=== PATIENT | male | born 1950 | race Caucasian/White ===

== ENCOUNTER 2016-10-13 08:18 | Day surgery (SDC) | payer MEDICARE ==
[~2016-10-13] VITALS: Ht 177.8 cm; Wt 127.4 kg
[~2016-10-13 08:18] MED LIST: ACET500C8 PO; ALLO300T2 PO; AMLO5TAB2 PO; ATEN-39 PO; LEVO50TA11 PO; LIDOCAINE 1% (10mg/ml) 2ml SDV INJ ONE; LISI1TAB13 PO; LR 1,000 ML IV SCH; MELO-267 PO; SIMV40TA5 PO
--- OUTSIDE RECORDS SUMMARY | 2016-10-13 08:22 | XMS REPORT | Referral Summary ---
Author Author [facility] Organization [facility] Address Unknown Phone Unavailable Care Team Providers Care Supervisor Cold Rolling Name Role Phone Ivanna Verdugo Primary Care Physician [phone] Encounter Date(s): 02/17/15 - 02/17/15 [facility] [address] [place] [address]- Discharge Diagnosis: Degenerative joint disease involving multiple joints Discharge Diagnosis: Gout Discharge Diagnosis: Gastro-esophageal reflux Discharge Diagnosis: Benign essential hypertension Discharge Diagnosis: Hypothyroidism Discharge Diagnosis: Hyperlipidemia Discharge Disposition: 01-Home or Self Care Attending Physician: Tian Verdugo MD Admitting Physician: Tian Verdugo MD Vital Signs Most recent to 1 oldest [Reference Range]: Temperature Tympanic 36.2 degC [36.6-38.1 degC] *LOW* (02/17/15 9:26 AM) Peripheral Pulse 64 bpm Rate [60-100 bpm] (02/17/15 9:26 AM) Respiratory Rate 16 br/min [14-20 br/min] (02/17/15 9:26 AM) Blood Pressure 138/100 mmHg [90-140/60-90 mmHg] (02/17/15 9:26 AM) Problem List Condition Effective Dates Status Health Status Informant Other dyspnea and Active respiratory abnormality(Confirme d) Allergic Active rhinitis(Confirmed) Anginal Active pain(Confirmed) Anxiety Active disorder(Confirmed) Benign essential Active hypertension (disorder)(Confirmed ) Constipation(Confirm Active ed) Generalized Active osteoarthritis (disorder)(Confirmed ) Dizziness and Active giddiness(Confirmed) Eustachian tube Active dysfunction(Confirme d) Gastro-esophageal Active reflux(Confirmed) Gout Active (disorder)(Confirmed ) History of Active varicella(Confirmed) Headache(Confirmed) Active Hearing Active loss(Confirmed) Hypothyroidism Active (disorder)(Confirmed ) Impacted Active cerumen(Confirmed) Head Active trauma(Confirmed) Kidney Active disease(Confirmed) Kidney Active stones(Confirmed) Hyperlipidemia(Confi Active rmed) Osteoarthritis(Confi Active rmed) Otalgia, Active unspecified(Confirme d) Overweight(Confirmed Active ) Sinus Active infection(Confirmed) Sleep Active apnea(Confirmed) Tension Active headache(Confirmed) TIA (transient Active ischemic attack)(Confirmed) Allergies, Adverse Reactions, Alerts Substance Reaction Severity Status aspirin Hives Active morphine Unknown Active penicillin Active Medications allopurinol 300 mg oral tablet See Instructions, TAKE ONE TABLET BY MOUTH ONCE DAILY, # 30 tabs, 2 Refill(s), Pharmacy: [facility], TAKE ONE TABLET BY MOUTH ONCE DAILY Start Date: 08/20/15 Status: Ordered amLODIPine 5 mg oral tablet 5 mg 1 tabs, Oral, Daily, # 30 tabs, 6 Refill(s), Pharmacy: [facility], 1 tabs Oral Daily Start Date: 04/15/15 Status: Ordered atenolol 50 mg oral tablet 50 mg 1 tabs, Oral, BID, # 60 tabs, 6 Refill(s), Pharmacy: [facility], 1 tabs Oral BID Start Date: 02/17/15 Status: Ordered Benadryl Allergy mg, Oral, Daily, as needed for allergy symptoms, 0 Refill(s) Start Date: 02/17/15 Status: Ordered LamISIL AT 1% topical cream 1 phoenix, Topical, TID, 0 Refill(s) Start Date: 05/06/14 Status: Ordered levothyroxine 50 mcg (0.05 mg) oral tablet See Instructions, TAKE ONE TABLET BY MOUTH ONCE DAILY, # 30 tabs, 8 Refill(s), eRx: [facility], TAKE ONE TABLET BY MOUTH ONCE DAILY Start Date: 05/07/15 Status: Ordered lisinopril-hydrochlorothiazide 20 mg-25 mg oral tablet See Instructions, TAKE ONE TABLET BY MOUTH ONCE DAILY, # 30 tabs, 4 Refill(s), eRx: [facility], TAKE ONE TABLET BY MOUTH ONCE DAILY Start Date: 02/18/15 Status: Ordered loratadine 10 mg oral tablet 10 mg 1 tabs, Oral, Daily, as needed for allergy symptoms, 0 Refill(s) Start Date: 02/17/15 Status: Ordered meloxicam 15 mg oral tablet 15 mg 1 tabs, Oral, Daily, # 30 tabs, 6 Refill(s), Pharmacy: [facility], 1 tabs Oral Daily Start Date: 02/17/15 Status: Ordered PriLOSEC OTC 20 mg oral delayed release tablet 20 mg 1 tabs, Oral, Daily, GERD/Heartburn, # 30 tabs, 0 Refill(s), Pharmacy: [facility], 1 tabs Oral Daily,PRN:GERD/Heartburn Start Date: 02/17/15 Status: Ordered simvastatin 40 mg oral tablet 40 mg 1 tabs, Oral, Bedtime (once a day), # 30 tabs, 6 Refill(s), Pharmacy: [facility], 1 tabs Oral Bedtime (once a day) Start Date: 02/17/15 Status: Ordered triamcinolone 0.1% topical cream 1 phoenix, Topical, BID, # 60 g, 0 Refill(s), Pharmacy: [facility] Start Date: 03/12/15 Status: Ordered Vitamin B Complex oral tablet 1 tabs, Oral, Daily, # 100 tabs, 0 Refill(s) Start Date: 02/17/15 Status: Ordered vitamin E 400 intl units oral capsule 400 Intl_Units 1 caps, Oral, Daily, # 100 caps, 0 Refill(s) Start Date: 02/17/15 Status: Ordered Zinc mg, Oral, Daily, 0 Refill(s) Start Date: 07/27/15 Status: Ordered Results Hematology Most recent to 1 oldest [Reference Range]: WBC [4.8-10.8 6.8 10*3/uL 10*3/uL] (02/17/15 10:18 AM) RBC [4.60-6.20] 4.90 (02/17/15 10:18 AM) Hgb [14.0-18.0 14.2 gm/dL gm/dL] (02/17/15 10:18 AM) Hct [42.0-52.0 %] 42.0 % (02/17/15 10:18 AM) MCV [82.0-99.0 fL] 85.7 fL (02/17/15 10:18 AM) MCH [27.0-32.0 pg] 29.0 pg (02/17/15:18 AM) MCHC [32.0-36.0 33.8 gm/dL gm/dL] (02/17/15:18 AM) RDW [11.5-14.5 %] 13.9 % (02/17/15:18 AM) Platelet [150-400 149 10*3/uL 10*3/uL] *LOW* (02/17/15:18 AM) Neutrophils [51-75 55 % %] (02/17/15:18 AM) Lymphocytes [20-46 30 % %] (02/17/15:18 AM) Monocytes [4-11 %] 11 % (02/17/15: AM) Eosinophils [0-4 %] 3 % (02/17/15 AM) Basophils [0-2 %] 1 % (02/17/15: AM) Neutro Absolute 3.74 10*3 [1.90-7.00 10*3] (02/17/15:18 AM) Lymph Absolute 2.04 10*3 [0.80-3.30 10*3] (02/17/15:18 AM) Kershaw Absolute 0.75 10*3 [0.30-1.00 10*3] (02/17/15:18 AM) Eos Absolute 0.20 10*3 [0.00-0.50 10*3] (02/17/15:18 AM) Baso Absolute 0.07 10*3 [0.00-0.20 10*3] (02/17/15:18 AM) Differential Manual *ABN* (02/17/15: AM) Chemistry Most recent to 1 oldest [Reference Range]: Sodium Lvl [135-144 144 mEq/L mEq/L] (02/17/15:18 AM) Potassium Lvl 3.5 mEq/L [3.5-5.2 mEq/L] (02/17/15:18 AM) Chloride [99-111 106 mEq/L mEq/L] (02/17/15:18 AM) CO2 [23-31 mEq/L] 27 mEq/L (02/17/15:18 AM) AGAP [3-20] 11 (9/22/15 10:18 AM) BUN [8-26 mg/dL] 14 mg/dL (02/17/15 10:18 AM) Glucose Lvl [70-99 115 mg/dL mg/dL] *HI* (02/17/15:18 AM) Creatinine Lvl 0.73 mg/dL [0.72-1.25 mg/dL] (02/17/15:18 AM) eGFR [>60 mL/min] >60 mL/min 1 (02/17/15: AM) Calcium Lvl 9.1 mg/dL [8.9-10.5 mg/dL] (02/17/15:18 AM) Albumin Lvl [3.4-4.8 4.0 gm/dL gm/dL] (02/17/15 AM) Total Protein 6.3 gm/dL [6.2-8.1 gm/dL] (02/17/15: AM) Globulin [1.8-4.0 2.3 gm/dL gm/dL] (02/17/15:18 AM) ALT [0-55 U/L] 45 U/L (02/17/15: AM) AST [5-34 U/L] 47 U/L *HI* (02/17/15: AM) Alk Phos [40-150 69 U/L U/L] (02/17/15:18 AM) Bili Total [0.2-1.2 0.8 mg/dL mg/dL] (02/17/15:18 AM) Uric Acid [3.5-7.2 5.6 mg/dL mg/dL] (02/17/15:18 AM) Chol [0-199 mg/dL] 132 mg/dL (02/17/15:18 AM) Trig [0-149 mg/dL] 123 mg/dL (02/17/15:18 AM) HDL [40-84 mg/dL] 33 mg/dL *LOW* (02/17/15:18 AM) LDL [0-130 mg/dL] 74 mg/dL (02/17/15:18 AM) VLDL Cholesterol 25 mg/dL [0-28 mg/dL] (9/22/15 10:18 AM) Cardiac Risk 4.0 [0.0-5.7] (02/17/15 10:18 AM) TSH with Reflex Free 2.14 T4 [0.35-4.94] (02/17/15 10:18 AM) 1Result Comment: Multiply eGFR results by 1.21 for race. Immunizations Vaccine Date Refusal Reason tetanus toxoid 08/01/13 Procedures Procedure Date Related Diagnosis Body Site Removal of skin tags, multiple fibrocutaneous 02/17/15 tags, any area; up to and including 15 lesions.. Repair of Nasal Septum 05/24/07 Sinus Surgery 05/24/07 Adenoidectomy 1970 Appendectomy Circumcision Tonsillectomy Social History Social History Type Response Smoking Status Former smoker Assessment and Plan Extracted from: Title: Ambulatory Patient Education Author: Tian Verdugo MD Date: Cardiovascular Dyslipidemia Dyslipidemia is an imbalance of the lipids in your blood. Lipids are waxy, fat- like proteins that your body needs in small amounts. Dyslipidemia often involves the lipids cholesterol or triglycerides. Common forms of dyslipidemia are: High levels of bad cholesterol (LDL cholesterol). LDL cholesterol is the type of cholesterol that causes heart disease. Low levels of good cholesterol (HDL cholesterol). HDL cholesterol is the type of cholesterol that helps protect against heart disease. High levels of triglycerides. Triglycerides are a fatty substance in the blood linked to a buildup of plaque on your arteries. RISK FACTORS Increased age. Having a family history of high cholesterol. Certain medicines, including control pills, diuretics, beta-blockers , and some medicines for depression. Smoking. Eating a high-fat diet. Being overweight. Medical conditions such as diabetes, polycystic ovary syndrome, , kidney disease, and hypothyroidism. Lack of regular exercise. SIGNS AND SYMPTOMS There are no signs or symptoms with dyslipidemia. DIAGNOSIS A simple blood test called a fasting blood test can be done to determine your level of: Total cholesterol. This is the combined number of LDL cholesterol and HDL cholesterol. A healthy number is lower than 200. LDL cholesterol. The goal number for LDL cholesterol is different for each person depending on risk factors. Ask your health care provider what your LDL cholesterol number should be. HDL cholesterol. A healthy level of HDL cholesterol is 60 or higher. A number lower than 40 for men or 50 for women is a danger sign. Triglycerides. A healthy triglyceride number is less than 150. TREATMENT Dyslipidemia is a treatable condition. Your health care provider will advise you on what type of treatment is best based on your age, your test results, and current guidelines. Treatment may include: Dietary changes. A dietitian can help you create a meal plan. You may need to: Eat more foods that contain omega-3s, such as salmon and other fish. Replace saturated fats and trans fats in your diet with healthy fats such as nuts, seeds, avocados, olive oil, and canola oil. Regular exercise. This can help lower your LDL cholesterol, raise your HDL cholesterol, and help with weight management. Check with your health care provider before beginning an exercise program. Most people should participate in 30 minutes of brisk exercise 5 days a week. Quitting smoking. Medicines to lower LDL cholesterol and triglycerides. Your health care provider will monitor your lipid levels with regular blood tests. HOME CARE INSTRUCTIONS Eat a healthy diet. Follow any diet instructions if they were given to you by your health care provider. Maintain a healthy weight. Exercise regularly based on the recommendations of your health care provider. Do not use any tobacco products, including cigarettes, chewing tobacco, or electronic cigarettes. Take medicines only as directed by your health care provider. Keep all follow-up visits as directed by your health care provider. SEEK MEDICAL CARE IF: You are having possible side effects from your medicines. Document Released: 05/20/2014 Document Revised: 09/29/2014 Document Reviewed: [facility] Patient Information 2015 [employer]. This information is not intended to replace advice given to you by your health care provider. Make sure you discuss any questions you have with your health care provider. No follow up information was provided. Extracted from: Title: Office Visit Note Author: Tian Verdugo MD Date: 02/17/15 Assessment/Plan Benign essential hypertension Blood pressure is adequately controlled. Medications and treatments reviewed refills provided. Follow-up in 6 months for recheck. Testing laboratory studies ordered for today. Ordered: CBC w/ Differential Comprehensive Metabolic Panel Lipid Panel Office Visit Level 4 Est 84365 Cutaneous skin tags These 3 skin tags were treated with cryotherapy using liquid nitrogen. Each skin tag was frozen for 1 minute if they recur or persist he'll let us know. Ordered: Removal Of Skin Tags, Up To and Including 51048 Degenerative joint disease involving multiple joints Chronic stable no change in current treatment recommended. Ordered: Office Visit Level 4 Est 60103 Gastro-esophageal reflux Chronic and stable no change in current treatment recommended. Ordered: Office Visit Level 4 Est 85797 Gout Continue allopurinol. Check uric acid level today. Ordered: Office Visit Level 4 Est 40494 Uric Acid Hyperlipidemia Laboratory studies ordered. No change in current treatment for the time being. Hypothyroidism TSH ordered appropriate adjustments as needed. Ordered: Office Visit Level 4 Est 72788 TSH with Reflex Free T4
--- OUTSIDE RECORDS SUMMARY | 2016-10-13 08:22 | XMS REPORT | Referral Summary ---
Author Author [facility] Organization [facility] Address Unknown Phone Unavailable Care Team Providers Care Off Premise Service Representative Name Role Phone Ivanna Verdugo Primary Care Physician [phone] Encounter Date(s): 12/23/15 - 12/23/15 [facility] [address] [place] [address]- Discharge Diagnosis: Gastro-esophageal reflux Discharge Diagnosis: Benign essential hypertension Discharge Diagnosis: Hyperlipidemia Discharge Diagnosis: Hypothyroidism (disorder) Discharge Diagnosis: Generalized osteoarthritis (disorder) Discharge Disposition: 01-Home or Self Care Attending Physician: Tian Verdugo MD Admitting Physician: Tian Verdugo MD Vital Signs Most recent to 1 oldest [Reference Range]: Temperature Tympanic 37.0 degC [36.6-38.1 degC] (12/23/15 1:42 PM) Peripheral Pulse 68 bpm Rate [60-100 bpm] (12/23/15 1:42 PM) Blood Pressure 146/86 mmHg [90-140/60-90 mmHg] *HI* (12/23/15 1:42 PM) Problem List Condition Effective Dates Status Health [...] BY MOUTH ONCE DAILY, # 30 tabs, eRx: [facility], TAKE ONE TABLET BY MOUTH ONCE DAILY Start Date: 12/14/15 Status: Ordered amLODIPine 5 mg oral tablet 5 mg 1 tabs, Oral, Daily, # 30 tabs, 6 Refill(s), Pharmacy: [facility], 1 tabs Oral Daily Start Date: 04/15/15 Status: Ordered atenolol 50 mg oral tablet 50 mg 1 tabs, Oral, BID, # 60 tabs, 6 Refill(s), Pharmacy: [facility], 1 tabs Oral BID Start Date: 10/12/15 Status: Ordered Benadryl Allergy mg, Oral, Daily, as needed for allergy symptoms, 0 Refill(s) Start Date: 02/17/15 Status: Ordered Glucosamine Chondroitin Advanced See Instructions, 1 tablet in the morning every other day, 1 every bedtime, 0 Refill(s) Start Date: 12/23/15 Status: Ordered LamISIL AT 1% topical cream 1 phoenix, Topical, TID, 0 Refill(s) Start Date: 05/06/14 Status: Ordered levothyroxine 50 mcg (0.05 mg) oral tablet See Instructions, TAKE ONE TABLET BY MOUTH ONCE DAILY, # 30 tabs, 8 Refill(s), eRx: [facility], TAKE ONE TABLET BY MOUTH ONCE DAILY Start Date: 05/07/15 Status: Ordered lisinopril-hydrochlorothiazide 20 mg-25 mg oral tablet See Instructions, TAKE ONE TABLET BY MOUTH ONCE DAILY, # 30 tabs, 4 Refill(s), Pharmacy: [facility] Start Date: 09/09/15 Status: Ordered loratadine 10 mg oral tablet 10 mg 1 tabs, Oral, Daily, as needed for allergy symptoms, 0 Refill(s) Start Date: 02/17/15 Status: Ordered meloxicam 15 mg oral tablet 15 mg 1 tabs, Oral, Daily, # 30 tabs, 6 Refill(s), Pharmacy: [facility], 1 tabs Oral Daily Start Date: 11/24/15 Status: Ordered PriLOSEC OTC 20 mg oral delayed release tablet 20 mg 1 tabs, Oral, Daily, GERD/Heartburn, # 30 tabs, 0 Refill(s), Pharmacy: [facility], 1 tabs Oral Daily,PRN:GERD/Heartburn Start Date: 02/17/15 Status: Ordered simvastatin 40 mg oral tablet 40 mg 1 tabs, Oral, Bedtime (once a day), # 30 tabs, 6 Refill(s), Pharmacy: [facility], 1 tabs Oral Bedtime (once a day) Start Date: 10/12/15 Status: Ordered triamcinolone 0.1% topical cream 1 phoenix, Topical, BID, # 60 g, 0 Refill(s), Pharmacy: [facility] Start Date: 03/12/15 Status: Ordered Vitamin B Complex oral tablet 1 tabs, Oral, Daily, # 100 tabs, 0 Refill(s) Start Date: 02/17/15 Status: Ordered vitamin E 400 intl units oral capsule 400 Intl_Units 1 caps, Oral, Daily, # 100 caps, 0 Refill(s) Start Date: 02/17/15 Status: Ordered Zinc mg, Oral, Daily, 0 Refill(s) Start Date: 07/27/15 Status: Ordered Results No data available for this section Immunizations Vaccine Date Refusal Reason tetanus toxoid 08/01/13 Procedures Procedure Date Related Diagnosis Body Site Repair of Nasal Septum 05/24/07 Sinus Surgery 05/24/07 Adenoidectomy 1970 Appendectomy Circumcision Tonsillectomy Social History Social History Type Response Smoking Status Former smoker; Type: Cigars1 1quit more than 30 years ago Assessment and Plan Extracted from: Title: Office Visit Note Author: Tian Verdugo MD Date: 12/23/15 Assessment/Plan 1.Benign essential hypertension Blood pressure is mildly elevated here but normal at home. No change in current treatment is recommended. Recent laboratory studies reviewed and provided. Report card reviewed and provided. Follow-up in 6 months. Encouraged weight loss. Ordered: Office Visit Level 4 Est 02463 2.Gastro-esophageal reflux Chronic stable no change in current treatment. Ordered: Office Visit Level 4 Est 83497 3.Generalized osteoarthritis (disorder) Chronic and stable no change in current treatment. Ordered: Office Visit Level 4 Est 59817 4.Hyperlipidemia Previous laboratory studies reviewedoverall stable. Continue current treatment plan without change. Recheck in 6 months with fasting lab. Ordered: Office Visit Level 4 Est 26729 5.Hypothyroidism (disorder) Most recent TSH is been normal no change in current treatment plan. Follow-up in 6 months with TSH then. Ordered: Office Visit Level 4 Est 39299
--- OUTSIDE RECORDS SUMMARY | 2016-10-13 08:23 | XMS REPORT | Referral Summary ---
Author Author [facility] Organization [facility] Address Unknown Phone Unavailable Care Team Providers Care Woods Laborer Name Role Phone Ivanna Verdugo Primary Care Physician [phone] Encounter Date(s): 04/27/16 - 04/27/16 [facility] [address] [place] [address]- Discharge Diagnosis: Bilateral acute suppurative otitis media Discharge Diagnosis: Cerumen impaction Discharge Diagnosis: Acute pharyngitis Discharge Diagnosis: Benign essential hypertension Discharge Disposition: 01-Home or Self Care Attending Physician: Chani Monet APRN Admitting Physician: Chani Monet APRN Vital Signs Most recent to 1 oldest [Reference Range]: Temperature Tympanic 36.5 degC [36.6-38.1 degC] *LOW* (04/27/16 9:23 AM) Peripheral Pulse 68 bpm Rate [60-100 bpm] (04/27/16 9:23 AM) Respiratory Rate 16 br/min [14-20 br/min] (04/27/16 9:23 AM) Blood Pressure 148/90 mmHg [90-140/60-90 mmHg] *HI* (04/27/16 9:23 AM) Problem List Condition Effective Dates Status [...] BY MOUTH ONCE DAILY, # 30 tabs, 0 Refill(s), Pharmacy: [facility], TAKE ONE TABLET BY MOUTH ONCE DAILY Start Date: 03/10/16 Status: Ordered amLODIPine 5 mg oral tablet See Instructions, TAKE ONE TABLET BY MOUTH ONCE DAILY, # 30 tabs, 4 Refill(s), eRx: [facility], TAKE ONE TABLET BY MOUTH ONCE DAILY Start Date: 01/04/16 Status: Ordered atenolol 50 mg oral tablet 50 mg 1 tabs, Oral, BID, # 60 tabs, 6 Refill(s), Pharmacy: [facility], 1 tabs Oral BID Start Date: 10/12/15 Status: Ordered Benadryl Allergy mg, Oral, Daily, as needed for allergy symptoms, 0 Refill(s) Start Date: 02/17/15 Status: Ordered Glucosamine Chondroitin Advanced See Instructions, 1 tablet in the morning every other day, 1 every bedtime, 0 Refill(s) Start Date: 12/23/15 Status: Ordered levothyroxine 50 mcg (0.05 mg) oral tablet See Instructions, TAKE ONE TABLET BY MOUTH ONCE DAILY, # 30 tabs, eRx: [facility], TAKE ONE TABLET BY MOUTH ONCE DAILY Start Date: 03/18/16 Status: Ordered lisinopril-hydrochlorothiazide 20 mg-25 mg oral tablet See Instructions, TAKE ONE TABLET BY MOUTH ONCE DAILY, # 30 tabs, 3 Refill(s), eRx: [facility], TAKE ONE TABLET BY MOUTH ONCE DAILY Start Date: 03/10/16 Status: Ordered loratadine 10 mg oral tablet 10 mg 1 tabs, Oral, Daily, as needed for allergy symptoms, 0 Refill(s) Start Date: 02/17/15 Status: Ordered meloxicam 15 mg oral tablet 15 mg 1 tabs, Oral, Daily, # 30 tabs, 6 Refill(s), Pharmacy: [facility], 1 tabs Oral Daily Start Date: 11/24/15 Status: Ordered PriLOSEC OTC 20 mg oral delayed release tablet 20 mg 1 tabs, Oral, Daily, GERD/Heartburn, # 30 tabs, 0 Refill(s), Pharmacy: [facility], 1 tabs Oral Daily,PRN:GERD/Heartburn Start Date: 02/17/15 Status: Ordered simvastatin 40 mg oral tablet 40 mg 1 tabs, Oral, Bedtime (once a day), # 30 tabs, 6 Refill(s), Pharmacy: [facility], 1 tabs Oral Bedtime (once a day) Start Date: 04/14/16 Status: Ordered Vitamin B Complex oral tablet 1 tabs, Oral, Daily, # 100 tabs, 0 Refill(s) Start Date: 02/17/15 Status: Ordered vitamin E 400 intl units oral capsule 400 Intl_Units 1 caps, Oral, Daily, # 100 caps, 0 Refill(s) Start Date: 02/17/15 Status: Ordered Zinc mg, Oral, Daily, 0 Refill(s) Start Date: 07/27/15 Status: Ordered Zithromax Z-Moe 250 mg oral tablet 1 packets, Oral, Daily, as directed on package labeling, X 5 days, # 6 tabs, 0 Refill(s), Pharmacy: [facility], 1 packets Oral Daily,x5 days,Instr: as directed on package labeling Start Date: 04/27/16 Stop Date: 05/02/16 Status: Ordered Results No data available for this section Immunizations Vaccine Date Refusal Reason influenza virus vaccine, inactivated 04/27/16 tetanus toxoid 08/01/13 Procedures Procedure Date Related Diagnosis Body Site Repair of Nasal Septum 05/24/07 Sinus Surgery 05/24/07 Adenoidectomy 1970 Appendectomy Circumcision Tonsillectomy Social History Social History Type Response Smoking Status Former smoker; Type: Cigars1 1quit more than 30 years ago Assessment and Plan Extracted from: Title: Office Visit Note-otitis Author: Chani Monet CARPENTER REPAIR Date: Assessment/Plan 1.Bilateral acute suppurative otitis media Zithromax. 2 tabs today then one tablet daily for 4 days. Recommend Tylenol as needed for pain. Pain does not improve let us know. He does have a mild component of otitis externa on the left which I think is contributable to the wax. 2.Cerumen impaction Resolved with irrigation. 3.Benign essential hypertension Encourage him to continue monitoring his blood pressures at home. Consistently greater than 140/90 let us know. 4.Acute pharyngitis Recommend salt water gargles and Chloraseptic spray for sore throat.
--- OUTSIDE RECORDS SUMMARY | 2016-10-13 08:23 | XMS REPORT | Referral Summary ---
Author Author [facility] Organization [facility] Address Unknown Phone Unavailable Care Team Providers Care Research Program Manager Name Role Phone Ivanna Verdugo Primary Care Physician [phone] Encounter Date(s): 06/24/16 - 06/24/16 [facility] [address] [place] [address]- Discharge Diagnosis: Hypothyroidism (disorder) Discharge Diagnosis: Gout Discharge Diagnosis: Gastro-esophageal reflux Discharge Diagnosis: Benign essential hypertension Discharge Diagnosis: Hyperlipidemia Discharge Diagnosis: Generalized osteoarthritis (disorder) Discharge Diagnosis: Idiopathic chronic gout, unspecified site, 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) Discharge Disposition: 01-Home or Self Care Attending Physician: Tian Verdugo MD Admitting Physician: Tian Verdugo MD Vital Signs Most recent to 1 oldest [Reference Range]: Temperature Tympanic 36.0 degC [36.6-38.1 degC] *LOW* (06/24/16 10:43 AM) Peripheral Pulse 76 bpm Rate [60-100 bpm] (06/24/16 10:43 AM) Respiratory Rate 18 br/min [14-20 br/min] (06/24/16 10:43 AM) Blood Pressure 140/86 mmHg [90-140/60-90 mmHg] (06/24/16 10:43 AM) Problem List Condition Effective Dates Status Health Status Informant Other dyspnea and Active respiratory abnormality(Confirme d) Allergic Active rhinitis(Confirmed) Anginal Active pain(Confirmed) Anxiety Active disorder(Confirmed) Benign essential Active hypertension (disorder)(Confirmed ) Gout Active (disorder)(Confirmed ) Constipation(Confirm Active ed) Generalized Active osteoarthritis (disorder)(Confirmed ) Dizziness and Active giddiness(Confirmed) Eustachian tube Active dysfunction(Confirme d) Gastro-esophageal Active reflux(Confirmed) History of Active varicella(Confirmed) Headache(Confirmed) Active Hearing [...] BY MOUTH ONCE DAILY, # 30 tabs, 1 Refill(s), eRx: [facility] 242 Start Date: 05/17/16 Status: Ordered amLODIPine 5 mg oral tablet See Instructions, TAKE ONE TABLET BY MOUTH ONCE DAILY, # 30 tabs, 4 Refill(s), Pharmacy: [place] [id number], TAKE ONE TABLET BY MOUTH ONCE DAILY Start Date: 05/24/16 Status: Ordered atenolol 50 mg oral tablet 50 mg 1 tabs, Oral, BID, # 60 tabs, 6 Refill(s), Pharmacy: [place] [address], 1 tabs Oral BID Start Date: 05/02/16 Status: Ordered Benadryl Allergy mg, Oral, Daily, as needed for allergy symptoms, 0 Refill(s) Start Date: 02/17/15 Status: Ordered Glucosamine Chondroitin Advanced See Instructions, 1 tablet in the morning every other day, 1 every bedtime, 0 Refill(s) Start Date: 12/23/15 Status: Ordered levothyroxine 50 mcg (0.05 mg) oral tablet See Instructions, TAKE ONE TABLET BY MOUTH ONCE DAILY, # 30 tabs, eRx: [facility] 2428 Start Date: 05/31/16 Status: Ordered lisinopril-hydrochlorothiazide 20 mg-25 mg oral tablet See Instructions, TAKE ONE TABLET BY MOUTH ONCE DAILY, # 30 tabs, 3 Refill(s), eRx: [facility] 2428, TAKE ONE TABLET BY MOUTH ONCE DAILY Start Date: 03/10/16 Status: Ordered loratadine 10 mg oral tablet 10 mg 1 tabs, Oral, Daily, as needed for allergy symptoms, 0 Refill(s) Start Date: 02/17/15 Status: Ordered meloxicam 15 mg oral tablet 15 mg 1 tabs, Oral, Daily, # 30 tabs, 6 Refill(s), Pharmacy: [facility], 1 tabs Oral Daily Start Date: 11/24/15 Status: Ordered PriLOSEC OTC 20 mg oral delayed release tablet 20 mg 1 tabs, Oral, Daily, GERD/Heartburn, # 30 tabs, 0 Refill(s), Pharmacy: [facility]28, 1 tabs Oral Daily,PRN:GERD/Heartburn Start Date: 02/17/15 Status: Ordered simvastatin 40 mg oral tablet 40 mg 1 tabs, Oral, Bedtime (once a day), # 30 tabs, 6 Refill(s), Pharmacy: [facility] 2428, 1 tabs Oral Bedtime [...] No data available for this section Immunizations Given and Recorded Vaccine Date Status Refusal Reason influenza virus vaccine, inactivated 04/27/16 Given tetanus toxoid 08/01/13 Given Procedures Procedure Date Related Diagnosis Body Site Repair of Nasal Septum 05/24/07 Sinus Surgery 05/24/07 Adenoidectomy 1970 Appendectomy Circumcision Tonsillectomy Social History Social History Type Response Smoking Status Former smoker; Type: Cigars1 1quit more than 30 years ago Assessment and Plan Extracted from: Title: Office Visit Note Author: Tian Verdugo MD Date: 06/24/16 Assessment/Plan 1.Benign essential hypertension Blood pressures adequately controlled. Medications and treatments reviewed no changes are recommended. Recent laboratory studies reviewed report card reviewed and provided. Follow-up in 6 months. 2.Gastro-esophageal reflux Chronic stable no change in current treatment recommended. 3.Generalized osteoarthritis (disorder) Chronic relatively stable no change in current treatment. 4.Hyperlipidemia Recent laboratory studies reviewed no changes are recommended. Follow-up in 6 months. 5.Hypothyroidism (disorder) No change in current dose of levothyroxine recommended at this time. 6.Gout No recent gouty flairs continue allopurinol at its current dosage.
--- OUTSIDE RECORDS SUMMARY | 2016-10-13 08:23 | XMS REPORT | Continuity of Care Document ---
Author Author [place] [employer]OMOBILE CONTRACT CLERKJacinta [facility] Address [facility] [place] [address] Phone Unavailable Care Team Providers Care Debubblizer Name Role Phone Tian Verdugo PP Unavailable Payers Payer name Insurance type Covered republican ID Authorization(s) Unknown Problems Condition Effective Dates (start - stop) Clinical Status OBESITY NOS - IMPACTED CERUMEN - DYSFUNCT EUSTACHIAN TUBE - OTALGIA NOS - CONDUC HEAR LOSS MID EAR - SENSORNEUR HEAR LOSS NOS - HYPERTENSION NOS - VENOUS THROMBOSIS NOS - CHR MAXILLARY SINUSITIS - CHRONIC SINUSITIS NOS - ALLERGIC RHINITIS NEC - ESOPHAGEAL REFLUX - DIZZINESS AND GIDDINESS - SLEEP APNEA NOS - HEADACHE - RESPIRATORY ABNORM NEC - Hyperlipidemia, NOS - *Chronic Hypothyroidism - *Chronic Osteoarthitis, generalized - *Chronic Gout - *Chronic Other and unspecified hyperlipidemia - *Chronic Obesity - *Chronic Hypertension, benign - *Chronic Family History Family Member Diagnosis Age At Onset Status Unknown Social History Social History Element Description Quantity Unknown Allergies, Adverse Reactions, Alerts Substance Reaction Severity Status CAFFEINE Hives Unknown ASPIRIN Hives Unknown MORPHINE Unknown Unknown PENICILLINS Unknown Medications Medication Instructions Dosage Effective Dates (start - stop) Status lisinopril 20 mg-hydrochlorothiazide 25 mg tablet Take 1 tablet by mouth every day. - Active atenolol 50 mg tablet Take 1 tablet by mouth twice a day. - Active amlodipine 5 mg tablet Take 1 by mouth every day. - Active simvastatin 40 mg tablet Take 1 by mouth every day. - Active Lamisil AT 1 % topical cream APPLY TID X 4 WEEKS - Active Levothroid 50 mcg tablet Take 1 by mouth every day. - Active allopurinol 300 mg tablet Take 1 by mouth every day. - Active Immunizations Vaccine Date Status Comments Tetanus toxoid completed Results Test Name Date and Time Measure Units Reference Range Abnormal Flag Comments Unknown Vital Signs Date / Time: Height Weight Pulse Rate Blood Pressure Temperature /11:10:00 71.00 in 287.80 lbs 58 /min 138/90 mm[Hg] 95.1 F /10:52:00 71.00 in 287.80 lbs 58 /min 138/90 mm[Hg] 95.1 F /11:01:00 71.00 in 287.80 lbs 58 /min 138/90 mm[Hg] 95.1 F Procedures Procedure Date Unknown Encounters Encounter Location Date Patient Visit [facility] Patient Visit Conversion Patient Visit [facility] Advance Directives Directive Effective Date Unknown
--- OUTSIDE RECORDS SUMMARY | 2016-10-13 08:23 | XMS REPORT | Referral Summary ---
Author Author [facility] Organization [facility] Address Unknown Phone Unavailable Care Team Providers Care Rib Cloth Knitter Name Role Phone Ivanna Verdugo Primary Care Physician [phone] Encounter VC Date(s): 05/18/16 - 05/18/16 [facility] [address] [place] [address]- Discharge Diagnosis: Sprain of right thumb Discharge Disposition: 01-Home or Self Care Attending Physician: Tian Verdugo MD Admitting Physician: Tian Verdugo MD Vital Signs Most recent to 1 oldest [Reference Range]: Temperature Tympanic 36.0 degC [36.6-38.1 degC] *LOW* (05/18/16 9:17 AM) Peripheral Pulse 60 bpm Rate [60-100 bpm] (05/18/16 9:17 AM) Respiratory Rate 18 br/min [14-20 br/min] (05/18/16 9:17 AM) Blood Pressure 148/92 mmHg [90-140/60-90 mmHg] *HI* (05/18/16 9:17 AM) Problem List Condition Effective Dates Status [...] DAILY, # 30 tabs, 1 Refill(s), eRx: [facility] 2428 Start Date: 05/17/16 Status: Ordered amLODIPine 5 mg oral tablet See Instructions, TAKE ONE TABLET BY MOUTH ONCE DAILY, # 30 tabs, 4 Refill(s), eRx: [facility] 2428, TAKE ONE TABLET BY MOUTH ONCE DAILY Start Date: 01/04/16 Status: Ordered atenolol 50 mg oral tablet 50 mg 1 tabs, Oral, BID, # 60 tabs, 6 Refill(s), Pharmacy: [facility] 2428, 1 tabs Oral BID Start Date: 05/02/16 [...] MOUTH ONCE DAILY, # 30 tabs, eRx: [facility] 2428, TAKE ONE TABLET BY MOUTH ONCE DAILY Start Date: 04/29/16 Status: Ordered lisinopril-hydrochlorothiazide 20 mg-25 mg oral tablet See Instructions, TAKE ONE TABLET BY MOUTH ONCE DAILY, # 30 tabs, 3 Refill(s), eRx: [facility] 2428, TAKE ONE TABLET BY MOUTH ONCE DAILY Start Date: 03/10/16 Status: Ordered loratadine 10 mg oral tablet 10 mg 1 tabs, Oral, Daily, as needed for allergy symptoms, 0 Refill(s) Start Date: 02/17/15 Status: Ordered meloxicam 15 mg oral tablet 15 mg 1 tabs, Oral, Daily, # 30 tabs, 6 Refill(s), Pharmacy: [facility]28, 1 tabs Oral Daily Start Date: 11/24/15 Status: Ordered PriLOSEC OTC 20 mg oral delayed release tablet 20 mg 1 tabs, Oral, Daily, GERD/Heartburn, # 30 tabs, 0 Refill(s), Pharmacy: [facility] 2428, 1 tabs Oral Daily,PRN:GERD/Heartburn Start Date: 02/17/15 Status: Ordered simvastatin 40 mg oral tablet 40 mg 1 tabs, Oral, Bedtime (once a day), # 30 tabs, 6 Refill(s), Pharmacy: [facility] 2428, 1 tabs Oral Bedtime [...] Visit Note Author: Tian Verdugo MD Date: 05/18/16 Assessment/Plan 1.Sprain of right thumb I recommended continuing to use the thumb spica splint over the next week. May take thishandout2-3 times a day and do range of motionexercises. After a weekas long as he sees continued improvement he may remove the splint and use it only with heavier activity. I suggested that it may take 6-8 weeks to get completely back to normal. She has ongoing problems or further concerns he should follow-up. Ordered: Office Visit Level 3 Est [id number]
--- OUTSIDE RECORDS SUMMARY | 2016-10-13 08:23 | XMS REPORT | Referral Summary ---
Author Author [facility], [facility] Care Organization [facility] Address Unknown Phone Unavailable Care Team Providers Care Liaison Officer Name Role Phone Ivanna Verdugo Primary Care Physician [phone] Encounter Date(s): 07/22/16 - 07/22/16 [facility] [address] [place] [address]- Discharge Diagnosis: Right ear impacted cerumen Discharge Diagnosis: HTN (hypertension) Discharge Diagnosis: Nausea vomiting and diarrhea Discharge Disposition: 01-Home or Self Care Attending Physician: Akin Delgado PA-C Admitting Physician: Akin Delgado PA-C Vital Signs Most recent to 1 oldest [Reference Range]: Temperature Tympanic 36.2 degC [36.6-38.1 degC] *LOW* (07/22/16 3:31 PM) Peripheral Pulse 74 bpm Rate [60-100 bpm] (07/22/16 3:31 PM) Blood Pressure 154/82 mmHg [90-140/60-90 mmHg] *HI* (07/22/16 3:31 PM) SpO2 96 % (07/22/16 3:31 PM) Problem List Condition Effective Dates Status [...] MOUTH ONCE DAILY, # 30 tabs, eRx: [place] [facility] [address] Start Date: 07/19/16 Status: Ordered amLODIPine 5 mg oral tablet See Instructions, TAKE ONE TABLET BY MOUTH ONCE DAILY, # 30 tabs, 4 Refill(s), Pharmacy: [place] [address], TAKE ONE TABLET BY MOUTH ONCE DAILY Start Date: 05/24/16 Status: Ordered atenolol 50 mg oral tablet 50 mg 1 tabs, Oral, BID, # 60 tabs, 6 Refill(s), Pharmacy: [place] [address], 1 tabs Oral BID Start Date: 05/02/16 [...] DAILY, # 30 tabs, 8 Refill(s), eRx: [facility] [place] [address] Start Date: 06/30/16 Status: Ordered lisinopril-hydrochlorothiazide 20 mg-25 mg oral tablet See Instructions, TAKE ONE TABLET BY MOUTH ONCE DAILY, # 30 tabs, 5 Refill(s), eRx: [facility] [place] [address] Start Date: 07/22/16 Status: Ordered loratadine 10 mg oral tablet 10 mg 1 tabs, Oral, Daily, as needed for allergy symptoms, 0 Refill(s) Start Date: 02/17/15 Status: Ordered meloxicam 15 mg oral tablet See Instructions, TAKE ONE TABLET BY MOUTH ONCE DAILY, # 30 tabs, eRx: [facility] [address] Start Date: 07/19/16 Status: Ordered PriLOSEC OTC 20 mg oral delayed release tablet 20 mg 1 tabs, Oral, Daily, GERD/Heartburn, # 30 tabs, 0 Refill(s), Pharmacy: [facility] 2428, 1 tabs Oral Daily,PRN:GERD/Heartburn Start Date: 02/17/15 Status: Ordered simvastatin 40 mg oral tablet 40 mg 1 tabs, Oral, Bedtime (once a day), # 30 tabs, 6 Refill(s), Pharmacy: [facility] 2428, 1 tabs Oral Bedtime (once [...] ago Assessment and Plan Extracted from: Title: bilat ear pain Author: kAin Delgado PA-C Date: 07/22/16 Assessment/Plan Hypertension Discussed not using NSAIDsdue to hypertension. Recommended Tylenol Allergic rhinitis Notes not having symptoms of allergic rhinitis currently. Nausea vomiting and diarrhea Resolved currently. If symptoms worsen or return, follow-up for additional assessment. Right ear impacted cerumen Patient notes the ear feels better, after wax removed.
--- OUTSIDE RECORDS SUMMARY | 2016-10-13 08:23 | XMS REPORT | Referral Summary ---
Author Author [facility], [facility] Organization [facility] Address Unknown Phone Unavailable Care Team Providers Care Band Maker Name Role Phone Ivanna Verdugo Primary Care Physician [phone] Encounter VC Date(s): 03/12/15 - 03/12/15 [facility] [address] [place] [address] Discharge Diagnosis: Contact dermatitis Discharge Diagnosis: Osteoarthritis of left knee Discharge Disposition: 01-Home or Self Care Attending Physician: Tian Verdugo MD Admitting Physician: Tian Verdugo MD Vital Signs Most recent to 1 oldest [Reference Range]: Temperature Tympanic 36.0 degC [36.6-38.1 degC] *LOW* (03/12/15 3:26 PM) Peripheral Pulse 68 bpm Rate [60-100 bpm] (03/12/15 3:26 PM) Respiratory Rate 22 br/min [14-20 br/min] *HI* (03/12/15 3:26 PM) Blood Pressure 154/86 mmHg [90-140/60-90 mmHg] *HI* (03/12/15 3:26 PM) Problem List Condition Effective Dates Status [...] Active varicella(Confirmed) Headache(Confirmed) Active Hearing Active loss(Confirmed) Hyperlipidemia(Confi Active rmed) Hypothyroidism Active (disorder)(Confirmed ) Impacted Active cerumen(Confirmed) Head Active trauma(Confirmed) Kidney Active disease(Confirmed) Kidney Active stones(Confirmed) Osteoarthritis(Confi Active rmed) Otalgia, Active unspecified(Confirme d) Overweight(Confirmed Active ) Sinus Active infection(Confirmed) Sleep Active apnea(Confirmed) Tension Active headache(Confirmed) TIA (transient Active ischemic attack)(Confirmed) Allergies, Adverse Reactions, Alerts Substance Reaction Severity Status aspirin Hives Active caffeine Hives Active morphine Unknown Active penicillin Active Medications allopurinol 300 mg oral tablet See Instructions, TAKE ONE TABLET BY MOUTH ONCE DAILY, # 30 tabs, eRx: [facility], TAKE ONE TABLET BY MOUTH ONCE DAILY Start Date: 02/17/15 Status: Ordered amLODIPine 5 mg oral tablet 1 tabs, Oral, Daily, # 30 tabs, 6 Refill(s), Pharmacy: [facility], 1 tabs Oral Daily Start Date: 05/08/14 Status: Ordered Atarax as needed for itching, 0 Refill(s) Start Date: 02/17/15 Status: Ordered atenolol 50 mg oral tablet 50 mg 1 tabs, Oral, BID, # 60 tabs, 6 Refill(s), Pharmacy: [facility] 2428, 1 tabs Oral BID Start Date: 02/17/15 Status: Ordered Benadryl Allergy mg, Oral, Daily, as needed for allergy symptoms, 0 Refill(s) Start Date: 02/17/15 Status: Ordered LamISIL AT 1% topical cream 1 [place]oenix, Topical, TID, 0 Refill(s) Start Date: 05/06/14 Status: Ordered levothyroxine 50 mcg (0.05 mg) oral tablet 1 tabs, Oral, Daily, # 30 tabs, 6 Refill(s), Pharmacy: [facility], 1 tabs Oral Daily Start Date: 05/08/14 Status: Ordered lisinopril-hydrochlorothiazide 20 mg-25 mg oral tablet See Instructions, TAKE ONE TABLET BY MOUTH ONCE DAILY, # 30 tabs, 4 Refill(s), eRx: [facility]28, TAKE ONE TABLET BY MOUTH ONCE DAILY Start Date: 02/18/15 Status: Ordered loratadine 10 mg oral tablet 10 mg 1 tabs, Oral, Daily, as needed for allergy symptoms, 0 Refill(s) Start Date: 02/17/15 Status: Ordered meloxicam 15 mg oral tablet 15 mg 1 tabs, Oral, Daily, # 30 tabs, 6 Refill(s), Pharmacy: [facility] 2428, 1 tabs Oral Daily Start Date: 02/17/15 Status: Ordered PriLOSEC OTC 20 mg oral delayed release tablet 20 mg 1 tabs, Oral, Daily, GERD/Heartburn, # 30 tabs, 0 Refill(s), Pharmacy: [facility] 2428, 1 tabs Oral Daily,PRN:GERD/Heartburn Start Date: 02/17/15 Status: Ordered simvastatin 40 mg oral tablet 40 mg 1 tabs, Oral, Bedtime (once a day), # 30 tabs, 6 Refill(s), Pharmacy: [facility]28, 1 tabs Oral Bedtime (once a day) Start Date: 02/17/15 Status: Ordered triamcinolone 0.1% topical cream 1 phoenix, Topical, BID, # 60 g, 0 Refill(s), Pharmacy: [facility] 2428 Start Date: 03/12/15 Status: Ordered Vitamin B Complex oral tablet 1 tabs, Oral, Daily, # 100 tabs, 0 Refill(s) Start Date: 02/17/15 Status: Ordered vitamin E 400 intl units oral capsule 400 Intl_Units 1 caps, Oral, Daily, # 100 caps, 0 Refill(s) Start Date: 02/17/15 Status: Ordered Results No data available for this section Immunizations Vaccine Date Refusal Reason tetanus toxoid 08/01/13 Procedures Procedure Date Related Diagnosis Body Site Arthrocentesis, aspiration and/or injection, 03/12/15 major joint or bursa (eg, shoulder, hip, knee, subacromial bursa); without ultrasound guidance Repair of Nasal Septum 05/24/07 Sinus Surgery 05/24/07 Adenoidectomy 1970 Appendectomy Circumcision Tonsillectomy Social History Social History Type Response Smoking Status Former smoker Assessment and Plan Extracted from: Title: Office Visit Note Author: Tian Verdugo MD Date: 03/12/15 Assessment/Plan Contact dermatitis I recommended some triamcinolone cream 0.1 percent applied twice a day until clear if not improving follow-up. Osteoarthritis of left knee I recommended an injection into the knee. Under sterile technique using no touch technique the left knee was injected with 2 mL of Kenalog 1 mL of lidocaine in the infrapatellar medial side. He tolerated this well. If not improving would consider orthopedic referral. Ordered: Arthro/Asp Major Joint Inj (Shoulder, Hip, Knee) Orders: triamcinolone topical, 1 phoenix, Topical, BID, # 60 g, 0 Refill(s), Pharmacy: [facility]
--- OUTSIDE RECORDS SUMMARY | 2016-10-13 08:23 | XMS REPORT | Referral Summary ---
Author Author [facility] Organization [facility] Address Unknown Phone Unavailable Care Team Providers Care Inspector Golf Ball Name Role Phone Ivanna Verdugo Primary Care Physician [phone] Encounter VC Date(s): 03/12/15 - 03/12/15 [facility] [address] [place] [address]- Discharge Diagnosis: Contact dermatitis Discharge Diagnosis: Osteoarthritis [...] DAILY, # 30 tabs, 2 Refill(s), Pharmacy: [facility]28, TAKE ONE TABLET BY MOUTH ONCE DAILY Start Date: 08/20/15 Status: Ordered amLODIPine 5 mg oral tablet 5 mg 1 tabs, Oral, Daily, # 30 tabs, 6 Refill(s), Pharmacy: [facility], 1 tabs Oral Daily Start Date: 04/15/15 Status: Ordered atenolol 50 mg oral tablet 50 mg 1 tabs, Oral, BID, # 60 tabs, 6 Refill(s), Pharmacy: [facility] 2428, 1 tabs Oral [...] DAILY, # 30 tabs, 8 Refill(s), eRx: [facility], TAKE ONE TABLET BY MOUTH ONCE DAILY Start Date: 05/07/15 Status: Ordered lisinopril-hydrochlorothiazide 20 mg-25 mg oral tablet See Instructions, TAKE ONE TABLET BY MOUTH ONCE DAILY, # 30 tabs, 4 Refill(s), Pharmacy: [facility] 2428 Start Date: 09/09/15 Status: Ordered loratadine 10 mg oral tablet 10 mg 1 tabs, Oral, Daily, as needed for allergy symptoms, 0 Refill(s) Start Date: 02/17/15 Status: Ordered meloxicam 15 mg oral tablet 15 mg 1 tabs, Oral, Daily, # 30 tabs, 6 Refill(s), Pharmacy: [facility] 2428, 1 tabs Oral Daily Start Date: 02/17/15 Status: Ordered PriLOSEC OTC 20 mg oral delayed release tablet 20 mg 1 tabs, Oral, Daily, GERD/Heartburn, # 30 tabs, 0 Refill(s), Pharmacy: [facility] 2428, 1 tabs Oral Daily,PRN:GERD/Heartburn Start Date: 02/17/15 Status: Ordered simvastatin 40 mg oral tablet 40 mg 1 tabs, Oral, Bedtime (once a day), # 30 tabs, 6 Refill(s), Pharmacy: [facility] 2428, 1 tabs Oral Bedtime (once a day) Start Date: 02/17/15 Status: Ordered triamcinolone 0.1% topical cream 1 phoenix, Topical, BID, # 60 g, 0 Refill(s), Pharmacy: [facility] 2428 Start Date: 03/12/15 Status: [...] BID, # 60 g, 0 Refill(s), Pharmacy: [facility] 6018
--- OUTSIDE RECORDS SUMMARY | 2016-10-13 08:23 | XMS REPORT | Continuity of Care Document ---
Author Author [facility] Organization [facility] Address Unknown Phone Unavailable Allergies Active Description Code Type Severity Reaction Onset Reported/Identified Relationship to Patient Clinical Status Yes aspirin NKMA N/A Hives 09/26/2013 Yes caffeine NKMA N/A Hives 09/26/2013 Yes morphine NKMA N/A Unknown 09/26/2013 Yes penicillin NKMA N/A N/A 09/26/2013 Medications Problems Procedures Results Encounters ACCT No. Visit Date/Time Discharge Status Pt. Type Provider Facility Loc./Unit Complaint [id number] 08/01/2013 11:16:00 08/01/2013 23 :59:59 CLS Outpatient [id number] 07/31/2013 14:31:00 07/31/2013 23 :59:59 CLS Outpatient
--- OUTSIDE RECORDS SUMMARY | 2016-10-13 08:23 | XMS REPORT | Referral Summary ---
Author Author [facility] Organization [facility] Address Unknown Phone Unavailable Care Team Providers Care Traffic Routing Engineer Name Role Phone Ivanna Verdugo Primary Care Physician [phone] Encounter Date(s): 07/27/15 - 07/27/15 [facility] [address] [place] [address]- Discharge Diagnosis: Dry skin Discharge Diagnosis: Benign essential hypertension Discharge Disposition: 01-Home or Self Care Attending Physician: Tian Verdugo MD Admitting Physician: Tian Verdugo MD Vital Signs Most recent to 1 oldest [Reference Range]: Temperature Tympanic 36.0 degC [36.6-38.1 degC] *LOW* (07/27/15 2:12 PM) Peripheral Pulse 80 bpm Rate [60-100 bpm] (07/27/15 2:12 PM) Respiratory Rate 22 br/min [14-20 br/min] *HI* (07/27/15 2:12 PM) Blood Pressure 142/92 mmHg [90-140/60-90 mmHg] *HI* (07/27/15 2:12 PM) Problem List Condition Effective Dates Status [...] DAILY, # 30 tabs, 3 Refill(s), eRx: [facility], TAKE ONE TABLET BY MOUTH ONCE DAILY Start Date: 03/17/15 Status: Ordered amLODIPine 5 mg oral tablet 5 mg 1 tabs, Oral, Daily, # 30 tabs, 6 Refill(s), Pharmacy: [facility], 1 tabs Oral Daily Start Date: 04/15/15 Status: Ordered atenolol 50 mg oral tablet 50 mg 1 tabs, Oral, BID, # 60 tabs, 6 Refill(s), Pharmacy: [facility], 1 tabs Oral [...] DAILY, # 30 tabs, 8 Refill(s), eRx: [facility], TAKE ONE TABLET BY MOUTH ONCE DAILY Start Date: 05/07/15 Status: Ordered lisinopril-hydrochlorothiazide 20 mg-25 mg oral tablet See Instructions, TAKE ONE TABLET BY MOUTH ONCE DAILY, # 30 tabs, 4 Refill(s), eRx: [facility], TAKE ONE TABLET BY MOUTH ONCE DAILY Start Date: 02/18/15 Status: Ordered loratadine 10 mg oral tablet 10 mg 1 tabs, Oral, Daily, as needed for allergy symptoms, 0 Refill(s) Start Date: 02/17/15 Status: Ordered meloxicam 15 mg oral tablet 15 mg 1 tabs, Oral, Daily, # 30 tabs, 6 Refill(s), Pharmacy: [facility], 1 tabs Oral Daily Start Date: 02/17/15 Status: Ordered PriLOSEC OTC 20 mg oral delayed release tablet 20 mg 1 tabs, Oral, Daily, GERD/Heartburn, # 30 tabs, 0 Refill(s), Pharmacy: [facility], 1 tabs Oral Daily,PRN:GERD/Heartburn Start Date: 02/17/15 Status: Ordered simvastatin 40 mg oral tablet 40 mg 1 tabs, Oral, Bedtime (once a day), # 30 tabs, 6 Refill(s), Pharmacy: [facility], 1 tabs Oral Bedtime (once a day) Start Date: 02/17/15 Status: Ordered triamcinolone 0.1% topical cream 1 phoenix, Topical, BID, # 60 g, 0 Refill(s), Pharmacy: [facility] Start Date: 03/12/15 [...] Visit Note Author: Tian Verdugo MD Date: 07/27/15 Assessment/Plan Benign essential hypertension, Essential (primary) hypertension Blood pressures a little high here he ischecking at home and it's running fairly good for him. He'll follow up as previously instructed. Ordered: Office Visit Level 3 Est 03490 Dry skin, Xerosis cutis Reassurance at this point I don't see any obvioussigns suggestive of scabies this time. If he starts eating more rash or having further difficulties he'll let us know. I recommended to get handmoisturizing cream 3-4 times daily. Ordered: Office Visit Level 3 Est 17032
--- OUTSIDE RECORDS SUMMARY | 2016-10-13 08:23 | XMS REPORT | Referral Summary ---
Author Author [facility] Organization [facility] Address Unknown Phone Unavailable Care Team Providers Care Prosthodontist/Owner Name Role Phone Ivanna Verdugo Primary Care Physician [phone] Encounter Date(s): 08/25/15 - 08/25/15 [facility] [address] [place] [address]- Discharge Diagnosis: Generalized osteoarthritis (disorder) Discharge Diagnosis: Hyperlipidemia Discharge Diagnosis: Hypothyroidism (disorder) Discharge Diagnosis: Elevated glucose Discharge Diagnosis: Gastro-esophageal reflux Discharge Diagnosis: Benign essential hypertension Discharge Disposition: 01-Home or Self Care Attending Physician: Tian Verdugo MD Admitting Physician: Tian Verdugo MD Vital Signs Most recent to 1 oldest [Reference Range]: Temperature Tympanic 36.7 degC [36.6-38.1 degC] (08/25/15 9:35 AM) Peripheral Pulse 68 bpm Rate [60-100 bpm] (08/25/15 9:35 AM) Respiratory Rate 16 br/min [14-20 br/min] (08/25/15 9:35 AM) Blood Pressure 154/94 mmHg [90-140/60-90 mmHg] *HI* (08/25/15 9:35 AM) Problem List Condition Effective Dates Status [...] DAILY, # 30 tabs, 2 Refill(s), Pharmacy: [facility], TAKE ONE TABLET BY MOUTH ONCE DAILY Start Date: 08/20/15 Status: Ordered amLODIPine 5 mg oral tablet 5 mg 1 tabs, Oral, Daily, # 30 tabs, 6 Refill(s), Pharmacy: [facility], 1 tabs Oral Daily Start Date: 04/15/15 Status: Ordered atenolol 50 mg oral tablet 50 mg 1 tabs, Oral, BID, # 60 tabs, 6 Refill(s), Pharmacy: [facility], 1 tabs Oral BID [...] DAILY, # 30 tabs, 8 Refill(s), eRx: [facility], TAKE ONE TABLET BY MOUTH ONCE DAILY Start Date: 05/07/15 Status: Ordered lisinopril-hydrochlorothiazide 20 mg-25 mg oral tablet See Instructions, TAKE ONE TABLET BY MOUTH ONCE DAILY, # 30 tabs, 4 Refill(s), eRx: [facility], TAKE ONE TABLET BY MOUTH ONCE DAILY Start Date: 02/18/15 Status: Ordered loratadine 10 mg oral tablet 10 mg 1 tabs, Oral, Daily, as needed for allergy symptoms, 0 Refill(s) Start Date: 02/17/15 Status: Ordered meloxicam 15 mg oral tablet 15 mg 1 tabs, Oral, Daily, # 30 tabs, 6 Refill(s), Pharmacy: [facility], 1 tabs Oral Daily Start Date: 02/17/15 Status: Ordered PriLOSEC OTC 20 mg oral delayed release tablet 20 mg 1 tabs, Oral, Daily, GERD/Heartburn, # 30 tabs, 0 Refill(s), Pharmacy: [facility], 1 tabs Oral Daily,PRN:GERD/Heartburn Start Date: 02/17/15 Status: Ordered simvastatin 40 mg oral tablet 40 mg 1 tabs, Oral, Bedtime (once a day), # 30 tabs, 6 Refill(s), Pharmacy: [facility], 1 tabs Oral Bedtime (once a day) Start Date: 02/17/15 Status: Ordered triamcinolone 0.1% topical cream 1 phoenix, Topical, BID, # 60 g, 0 Refill(s), Pharmacy: [facility] Start Date: 03/12/15 Status: Ordered Vitamin B Complex oral tablet 1 tabs, Oral, Daily, # 100 tabs, 0 Refill(s) Start Date: 02/17/15 Status: Ordered vitamin E 400 intl units oral capsule 400 Intl_Units 1 caps, Oral, Daily, # 100 caps, 0 Refill(s) Start Date: 02/17/15 Status: Ordered Zinc mg, Oral, Daily, 0 Refill(s) Start Date: 07/27/15 Status: Ordered Results Chemistry Most recent to 1 oldest [Reference Range]: Sodium Lvl [135-144 141 mEq/L mEq/L] (08/25/15 10:13 AM) Potassium Lvl 3.7 mEq/L [3.5-5.2 mEq/L] (08/25/15 10:13 AM) Chloride [99-111 104 mEq/L mEq/L] (08/25/15 10:13 AM) CO2 [23-31 mEq/L] 31 mEq/L (08/25/15 10:13 AM) AGAP [3-20] 6 (08/25/15 10:13 AM) BUN [8-26 mg/dL] 10 mg/dL (08/25/15 10:13 AM) Glucose Lvl [70-99 110 mg/dL mg/dL] *HI* (08/25/15 10:13 AM) Creatinine Lvl 0.71 mg/dL [0.72-1.25 mg/dL] *LOW* (08/25/15 10:13 AM) eGFR [>60 mL/min] >60 mL/min 1 (08/25/15 10:13 AM) Calcium Lvl 9.0 mg/dL [8.9-10.5 mg/dL] (08/25/15 10:13 AM) Albumin Lvl [3.4-4.8 4.0 gm/dL gm/dL] (08/25/15 10:13 AM) Total Protein 6.4 gm/dL [6.2-8.1 gm/dL] (08/25/15 10:13 AM) Globulin [1.8-4.0 2.4 gm/dL gm/dL] (08/25/15 10:13 AM) ALT [0-55 U/L] 36 U/L (08/25/15 10:13 AM) AST [5-34 U/L] 33 U/L (08/25/15 10:13 AM) Alk Phos [40-150 79 U/L U/L] (08/25/15 10:13 AM) Bili Total [0.2-1.2 0.5 mg/dL mg/dL] (08/25/15 10:13 AM) Chol [0-199 mg/dL] 129 mg/dL (08/25/15 10:13 AM) Trig [0-149 mg/dL] 133 mg/dL (08/25/15 10:13 AM) HDL [40-84 mg/dL] 35 mg/dL *LOW* (08/25/15 10:13 AM) LDL [0-130 mg/dL] 67 mg/dL (08/25/15 10:13 AM) VLDL Cholesterol 27 mg/dL [0-28 mg/dL] (08/25/15 10:13 AM) Cardiac Risk 3.7 [0.0-5.7] (08/25/15 10:13 AM) 1Result Comment: Multiply eGFR results by 1.21 for race. Immunizations Vaccine Date Refusal Reason tetanus toxoid 08/01/13 Procedures Procedure Date Related Diagnosis Body Site Repair of Nasal Septum 12/27/07 Sinus Surgery 05/24/07 Adenoidectomy 1970 Appendectomy Circumcision Tonsillectomy Social History Social History Type Response Smoking Status Former smoker Assessment and Plan Extracted from: Title: Office Visit Note Author: Tian Verdugo MD Date: 08/25/15 Assessment/Plan Benign essential hypertension Blood pressure is elevated here today. He has not taken his meds this morning however. I've asked him to stop them a couple times over the next month and have his blood pressure rechecked here. Fasting laboratory studies ordered today. Will continue current medications for the time being. Recheck in 3 months. Ordered: Office Visit Level 4 Est 07948 Elevated glucose Hemoglobin A1c is ordered will see what that shows. Encouraged weight loss Ordered: Office Visit Level 4 Est 76715 Gastro-esophageal reflux Chronic stable no change in current treatment. Ordered: Office Visit Level 4 Est 15815 Generalized osteoarthritis (disorder) Chronic relatively stable no change in current treatment. Ordered: Office Visit Level 4 Est 65290 Hyperlipidemia Fasting laboratory studies ordered no change in current treatment for the time being. Ordered: Office Visit Level 4 Est 31387 Hypothyroidism (disorder) TSH last fall was normal. No change in current dosage.
--- OUTSIDE RECORDS SUMMARY | 2016-10-13 08:23 | XMS REPORT | Continuity of Care Document ---
Author Author Brayden RAMOS, [facility] Address [address] [place] [address] Phone Care Team Providers Care Meat Pumper Name Role Phone Tian Verdugo PP Unavailable Payers Payer name Insurance type Covered alliance party ID Authorization(s) Unknown Problems Condition Effective Dates (start - stop) Clinical Status Hyperlipidemia, NOS - *Chronic Hypothyroidism - *Chronic Osteoarthitis, generalized - *Chronic Gout - *Chronic Other and unspecified hyperlipidemia - *Chronic Obesity - *Chronic Hypertension, benign - *Chronic OBESITY NOS - IMPACTED CERUMEN - DYSFUNCT EUSTACHIAN TUBE - OTALGIA NOS - CONDUC HEAR LOSS MID EAR - SENSORNEUR HEAR LOSS NOS - HYPERTENSION NOS - VENOUS THROMBOSIS NOS - CHR MAXILLARY SINUSITIS - CHRONIC SINUSITIS NOS - ALLERGIC RHINITIS NEC - ESOPHAGEAL REFLUX - DIZZINESS AND GIDDINESS - SLEEP APNEA NOS - HEADACHE - RESPIRATORY ABNORM NEC - Family History Family Member Diagnosis Age At [...] Measure Units Reference Range Abnormal Flag Comments Panel Description: CBC WBC 12:10:00 7.9 K/uL 4.8-10.8 RBC 12:10:00 5.35 M/uL 4.60-6.20 HGB 12:10:00 15.6 g/dl 14.0-18.0 HCT 12:10:00 45.7 % 42.0-52.0 MCV 12:10:00 85.4 fL 82.0-99.0 MCH 12:10:00 29.2 pg 27.0-32.0 MCHC 12:10:00 34.1 g/dL 32.0-36.0 RDW 12:10:00 14.1 % 11.5-14.5 Platelet Count 12:10:00 161 K/uL 150-400 Immature Granulocytes 12:10:00 0.1 % 0.0-1.0 Absolute Neutrophils 12:10:00 4.67 THOUS 1.90-7.00 Absolute Lymphocytes 12:10:00 1.95 THOUS 0.80-3.30 Absolute Monocytes 12:10:00 0.79 THOUS 0.30-1.00 Absolute Eosinophils 12:10:00 0.39 THOUS 0.00-0.50 Absolute Basophils 12:10:00 0.06 THOUS 0.00-0.20 Neutrophils 12:10:00 59 % 51-75 Lymphocytes 12:10:00 25 % 20-46 Monocytes 12:10:00 10 % 4-11 Eosinophils 12:10:00 5 % 0-4 H Basophils 12:10:00 1 % 0-2 Differential 12:10:00 Scanned Slide Testing performed at [facility] [address] [place] [address] Bacon Stringer Noel Rothman MD Panel Description: Chemistry Profile Glucose 12:10:00 110 mg/dL 70-99 H BUN 12:10:00 13 mg/dL 8-26 Creatinine 12:10:00 0.77 mg/dL 0.72-1.25 Calcium 12:10:00 9.9 mg/dL 8.9-10.5 Sodium 12:10:00 143 mEq/L 135-144 Potassium 12:10:00 4.0 mEq/L 3.5-5.2 Chloride 12:10:00 103 mEq/L 99-111 CO2 12:10:00 33 mEq/L 23-31 H Albumin 12:10:00 4.3 g/dL 3.4-4.8 Bilirubin Total 12:10:00 0.6 mg/dL 0.2-1.2 Alkaline Phosphatase 12:10:00 80 U/L 40-150 Protein 12:10:00 7.0 g/dL 6.2-8.1 ALT (SGPT) 12:10:00 54 U/L 0-55 AST (SGOT) 12:10:00 52 U/L 5-34 H Anion Gap 12:10:00 7 3-20 Globulin 12:10:00 2.7 g/dL 1.8-4.0 Testing performed at [facility] [address] [place] [id number] Bacon Stringer Noel Rothman MD Panel Description: Lipid Profile-[facility] Cholesterol 12:10:00 139 mg/dL 0-199 Triglycerides 12:10:00 171 mg/dL 0-149 H HDL Cholesterol 12:10:00 36 mg/dL 40-84 L LDL Cholesterol 12:10:00 69 mg/dL 0-130 VLDL Cholesterol 12:10:00 34 mg/dL 0-28 H Cardiac Risk 12:10:00 3.9 0.0-5.7 Testing performed at [facility] [address] [facility] [address] Bacon Stringer Noel Rothman MD Panel Description: Non-HDL Cholesterol-[facility] Non-HDL Cholesterol 12:10:00 103 mg/dL 0-159 Testing performed at [facility] [address] [facility] [address] Bacon Stringer Noel Rothman MD Panel Description: TSH-[facility] TSH 12:10:00 3.11 uIU/mL 0.35-4.94 Testing performed at [facility] [address] [facility] [address] Bacon Stringer Noel Rothman MD Panel Description: EGFR-[facility] eGFR 12:10:00 >60 mL/min >60 Multiply eGFR results by 1.21 for race.Testing performed at [facility] [address] [facility] [address] Bacon Stringer Noel Rothman MD Panel Description: Uric Acid Uric Acid 12:10:00 6.3 mg/dL 3.5-7.2 Testing performed at [facility] [address] [facility] [address] Bacon Stringer Noel Rothman MD Vital Signs Date / Time: Height Weight Pulse Rate Blood Pressure Temperature /11:16:00 71.00 in 287.80 lbs 58 /min 138/90 mm[Hg] 951.0 F Procedures Procedure Date Unknown Encounters Encounter Location Date Patient Visit [facility] Patient Visit Conversion Patient Visit [facility] Advance Directives Directive Effective Date Unknown
[2016-10-13 08:25] VITALS: Ht 177.8 cm; Wt 127.4 kg
[2016-10-13 08:30] VITALS: BP 156/88; PULSE 73; RESP 16; TEMP 98.4; O2SAT 93
[2016-10-13] MEDS ORDERED: LORA10TA7 PO (08:44)
[2016-10-13] MEDS ORDERED: GLUC1CAP25 PO ×2 (08:47→08:48)
[2016-10-13] MEDS ORDERED: ZINC50TA39 PO (08:51)
[2016-10-13] MEDS ORDERED: OMEG-34 PO (08:52)
[2016-10-13] MEDS ORDERED: POTA2TAB18 PO (08:54)
[2016-10-13] MEDS ORDERED: CHOL100092 PO (08:55)
[2016-10-13] MEDS ORDERED: VITA150T PO (08:56)
[2016-10-13] MEDS ORDERED: OMEP20CA10 PO (08:57)
[2016-10-13] MEDS ORDERED: DIPH25CA84 PO (08:58)
--- NOTE | 2016-10-13 09:34 | ANESPREOP ---
Anesthesia Record Date and Time DATE: 10/13/16 TIME: 09:32 Proposed Surgical Procedure COLONOSCOPY NPO since: Midnight Allergies: Coded Allergies: Penicillins (Unverified Allergy, Unknown, 10/13/16) aspirin (Unverified Allergy, Unknown, 10/13/16) morphine (Unverified Allergy, Unknown, 10/13/16) Uncoded Allergies: BEE STINGS (Allergy, Unknown, 01/06/08) Ht/Wt/BMI Height: 5 ' 10.00 " Weight: 127.400 kg BMI: 40.3 kg/m2 Vital Signs Date Time Temp Pulse Resp B/P Pulse Ox O2 Delivery O2 Flow Rate FiO2 10/13/16 08:30 98.4 73 16 156/88 93 Room Air Medications Inpatient Medications Current Medications Medications (Trade) Dose Ordered Sig/Manolo Start Time Stop Time Status Last Admin Dose Admin Lactated Ringer's (Lactated Ringers) 1,000 ml @ 30 mls/hr Q24H 10/13/16 07:00 Acetaminophen (Tylophen) 500 Mg Capsule, 500 MG PO PRN, (Reported) Last Taken: on 10/11/16 1100 Allopurinol (Allopurinol) 300 Mg Tablet, 1 TAB PO DAILY, (Reported) Last Taken: on 10/11/16 2230 Amlodipine Besylate (Amlodipine Besylate) 5 Mg Tablet, 1 TAB PO DAILY, (Reported) Last Taken: on 10/11/16 1100 Atenolol (Atenolol) 50 Mg Tablet, 50 MG PO BID, (Reported) Last Taken: on 10/11/16 2230 Cholecalciferol (Vitamin D3) (Vitamin D3) 1, 000 Unit Capsule, 1 TAB PO DAILY, (Reported) Last Taken: on 10/06/16 Diphenhydramine HCl (Benadryl) 25 Mg Capsule, 1 CAP PO DAILY, (Reported) Last Taken: on 10/11/16 1100 Glucosa Ramesh 2Kcl/Chondroitin Ramesh (Glucosamine & Chondroitin Cap) 1 Each Capsule, 2 CAP PO QOD, (Reported) Last Taken: on 10/06/16 Glucosa Ramesh 2Kcl/Chondroitin Ramesh (Glucosamine & Chondroitin Cap) 1 Each Capsule, 1 CAP PO QOD, (Reported) Last Taken: on 10/05/16 Levothyroxine Sodium (Levothyroxine Sodium) 50 Mcg Tablet, 1 TAB PO DAILY, (Reported) Last Taken: on 10/11/16 1100 Lisinopril/Hydrochlorothiazide (Lisinopril- Hctz 20-25 mg Tab) 1 Each Tablet, 1 TAB PO DAILY, (Reported) Last Taken: on 10/11/16 1100 Loratadine (Loratadine) 10 Mg Tablet, 10 MG PO DAILY, (Reported) Take 1 tablet, by mouth, one time a day (before breakfast). Last Taken: on 10/11/162229 Meloxicam (Meloxicam) 15 Mg Tablet, 1 TAB PO DAILY, (Reported) Last Taken: on 09/28/16 Bentley-3S/Dha/Epa/Fish Oil (Fish Oil 1,200 mg Softgel ) 1 Each Capsule, 1,200 MG PO BID, (Reported) Last Taken: on 10/06/16 Omeprazole (Omeprazole) 20 Mg Capsule.dr, 20 MG PO DAILY, (Reported) Take 1 capsule, by mouth, one time a day (before breakfast). Last Taken: on 10/11/162229 Potassium Gluconate (Potassium Gluconate) 500 Mg Tablet, 1 TAB PO DAILY, (Reported) Last Taken: on 10/06/16 Simvastatin (Simvastatin) 40 Mg Tablet, 1 TAB PO HS , (Reported) Last Taken: on 10/11/162229 Vitamin B Complex & Vit C No.4 (Super B Complex ) 150 Mg Tablet, 1 TAB PO DAILY, (Reported) Last Taken: on 10/06/16 Zinc (Zinc) 50 Mg Tablet, 50 MG PO DAILY, (Reported ) Last Taken: on 10/06/16 Currently on Beta Kiko: Yes Medical/Surgical History Anesthesia PMH: Reports: *Angina (pt says it is related to his GERD), * Hypertension, Arthritis (knees), CVA/Stroke/TIA (TIA ), Hiatal Hernia, Pneumonia (HX OF LONG AGO), Reflux, Sleep Apnea (borderline--CPAP not recommended), Thyroid Disease, Denies: *Diabetes, *ND, Anesthesia Reactions (NO AIRWAY ISSUES), Asthma, CHF, COPD, Cancer, Clotting Problems, Glaucoma, Malignant Hyperthermia, Renal Disease, Seizures, Tuberculosis Smoking Status: Never smoker Has pt. smoked today?: No Use Chewing Tobacco?: No Second Hand Exposure: No Substance Use Type: does not use Alcohol Intake: none Past Surgical History Orthopedic Surgeries: Yes - PARTIAL L RCR& DEBRIDEMENT, R ROTATOR CUFF TEAR,L KNEE SCOPE Abdominal Surgeries: Yes - APPY Genitourinary Surgeries: Cardiac Surgeries: Endocrine Surgeries: Reproductive Surgeries: Neurological Surgeries: Ear Surgeries: Nose Surgeries: Yes - DEVIATED SEPTUM REPAIR Throat Surgeries: Yes - TONSILLECTOMY Other Surgeries: Anesthesia Adverse Reactions: FOUND none Family Hx of Anesthesia Advers: none Hx of Motion Sickness: No Physical Exam Respiratory: Lungs clear Airway Assessment Mallampati Score: II TMD: 3 Fingerbreadths Neck Extension: Good Teeth: Upper Dentures, Lower Dentures ASA: 2 Plan Anesthesia Plan: TIVA Discussion Discussed risks/options/alternatives of anesthesia and questions answered. Patient consents. Nursing pain assessment noted. Attestation Statement Prior to the delivery of any anesthetic medication, I examined the patient, developed the plan, obtained the patient's consent and discussed the risk and benefits of the procedure with the patient/guardian. VERITO MELO October 13, 2016 09:34
[2016-10-13] MEDS ORDERED: PROPOFOL 500mg 50 ML IV ONE (10:00)
[2016-10-13] MEDS ORDERED: LIDOCAINE 2% (20mg/ml) 5ml PF SDV ONE (10:00)
[2016-10-13 10:34] VITALS: BP 120/53; PULSE 70; RESP 12; TEMP 97.3; O2SAT 92
[2016-10-13 10:49] VITALS: BP 124/69; PULSE 68; RESP 16; O2SAT 95
[2016-10-13 11:04] VITALS: BP 120/53; PULSE 70; RESP 12; TEMP 97.3; O2SAT 92
--- NOTE | 2016-10-13 11:09 | ANESPO ---
Post-Op Note Date 10/13/16 Time: 11:07 Status Pt Participated in Evaluation: Pt participated in person Vital Signs Date Time Temp Pulse Resp B/P Pulse Ox O2 Delivery O2 Flow Rate FiO2 10/13/16 11:04 97.3 70 12 120/53 92 Room Air Respiratory Function: Airway patent, Regular respirations Cardiovascular Function: Regular pulse Mental Status: Alert/oriented Pain Level Intensity: 00 Hydration: Taking po fluids Complications during Recovery None apparent Post-Anesthesia Notes pt. tol. parsons Follow-Up Instructions Instructions Per Surgeon Additional Information tol. parsons none FARRUKH DENNEY CRNA October 13, 2016 11:09
--- NOTE | 2016-10-13 16:40 | OPNOTEF ---
DATE OF SERVICE 10/13/2016 SURGEON Raymond Anderson MD PREOPERATIVE DIAGNOSIS Colorectal cancer screening. POSTOPERATIVE DIAGNOSES Colorectal cancer screening. Colonic polyps located within ascending colon, hepatic flexure, and 40 cm from the anal verge. Sigmoid diverticulosis. PROCEDURES Colonoscopy with polypectomies via cold biopsy technique. ANESTHESIA TIVA BRIEF HISTORY/INDICATIONS Mr. Kaur is a 66-year-old gentleman who presents today to [facility] to undergo a colonoscopy for preventive measures for colorectal cancer screening. For completeness please refer to notes included in the patient's chart. FINDINGS Upon colonoscopy the patient was found to have three diminutive-appearing colonic polyps at 40 cm, hepatic flexure, and ascending colon. These polyps were on the order of 5-6 mm in diameter and were removed via cold biopsy technique. The patient was found to have a moderate number of diverticula within the sigmoid colon region. There was no evidence for angiodysplastic lesions or bernarda malignancies. DESCRIPTION OF PROCEDURE After informed consent was obtained the patient was brought to the endoscopy suite and placed on the table in left lateral decubitus position. Patient subsequently underwent total intravenous anesthesia by the nurse building architectural designer at my request. Formal timeout was then completed. Next, a digital rectal exam was performed. Normal sphincter tone. No rectal masses were appreciated. An Olympus colonoscope was inserted into the anus and advanced through the lumen of the colon under direct visualization at all times until the cecum was ascertained. Triangulation of the tenia coli and ileocecal valve were identified. The scope was slowly withdrawn. Within the mid ascending colon, hepatic flexure and at 40 cm from the anal verge the patient was found to have three polyps which were all fairly diminutive in nature and on the order of about 5-6 mm in diameter. Each polyp was removed in its entirety via cold biopsy technique and placed within separate containers. There was no evidence for angiodysplastic lesions or bernarda malignancies. Colonoscope was continued to be withdrawn until it was brought forth back to the rectal vault. The patient was found to have a moderate number of diverticula within the sigmoid colon region. A J-maneuver was performed. No worrisome perianal pathology was noted. Scope was allowed to straighten and was withdrawn through the anal verge. Patient tolerated the procedure without difficulty and was sent back to the preop area in stable condition. Await the biopsy results from today's polypectomies and proceed accordingly with further recommendations thereafter. [facility]
== END 2016-10-13 11:15 | disposition home or self-care (01) ==
LOC: SCU 08:18
PROVIDERS: ATTEND Surgery
DX: Z12.11 Encounter for screening for malignant neoplasm of colon (principal); D12.2 Benign neoplasm of ascending colon; D12.3 Benign neoplasm of transverse colon; K57.30 Diverticulosis of large intestine without perforation or abscess without bleeding; F41.9 Anxiety disorder, unspecified; I10 Essential (primary) hypertension; K21.9 Gastro-esophageal reflux disease without esophagitis; E78.5 Hyperlipidemia, unspecified; E03.9 Hypothyroidism, unspecified; G47.30 Sleep apnea, unspecified; E66.3 Overweight; Z68.41 Body mass index [BMI] 40.0-44.9, adult; Z79.1 Long term (current) use of non-steroidal anti-inflammatories (NSAID); Z79.899 Other long term (current) drug therapy; Z86.73 Personal history of transient ischemic attack (TIA), and cerebral infarction without residual deficits; Z87.891 Personal history of nicotine dependence
CPT/HCPCS: 45380; 88305; J7120